=== PATIENT | male | born 1990 | race African-American/Black ===

== ENCOUNTER 2021-06-04 11:39 | Emergency (ER) | payer MEDICAID ==
[~2021-06-04] VITALS: Ht 177.8 cm; Wt 123.0 kg
[2021-06-04 11:46] VITALS: BP 147/95
[2021-06-04] MEDS ORDERED: POLY10DR LEFTEYE (11:59)
== END 2021-06-04 12:13 | disposition home or self-care (01) ==
LOC: ER 11:39
DX: H00.015 Hordeolum externum left lower eyelid (principal); Z88.8 Allergy status to other drugs, medicaments and biological substances; Z98.890 Other specified postprocedural states
CPT/HCPCS: 99283

== ENCOUNTER 2021-06-06 09:03 | Emergency (ER) | payer MEDICAID ==
[~2021-06-06] VITALS: Ht 175.3 cm; Wt 122.0 kg
[~2021-06-06 09:03] MED LIST: POLY10DR LEFTEYE
[2021-06-06 09:07] VITALS: BP 159/99
[2021-06-06] MEDS ORDERED: ERYT1OIN6 LEFTEYE (09:29)
[2021-06-07] MEDS ORDERED: AMOX-424 MT (00:56)
[2021-06-07] MEDS ORDERED: SULF1TAB47 MT (00:56)
== END 2021-06-06 10:01 | disposition home or self-care (01) ==
LOC: ER 09:03
DX: H00.016 Hordeolum externum left eye, unspecified eyelid (principal); I10 Essential (primary) hypertension; Z13.9 Encounter for screening, unspecified; Z88.8 Allergy status to other drugs, medicaments and biological substances
CPT/HCPCS: 99283

== ENCOUNTER 2021-06-06 17:53 | Emergency (ER) | payer MEDICAID ==
[~2021-06-06] VITALS: Ht 177.8 cm; Wt 123.0 kg
[~2021-06-06 17:53] MED LIST changes: +ERYT1OIN6 LEFTEYE
[2021-06-06 21:27] LABS: BASOPHILS % 0.8 % (0.0-2.0); EOSINOPHILS % 0.6 % (0.0-5.0); HEMATOCRIT. 43.8 % (42.0-52.0); HEMOGLOBIN. 14.6 g/dL (14.0-18.0); LYMPHOCYTES % 33.7 % (20.0-50.0); MEAN CORPUSCULAR HEMOGLOBIN 28.3 pg (28.0-32.0); MEAN CORPUSCULAR VOLUME 84.7 fL (80.0-94.0); MEAN PLATELET VOLUME 7.4 fl (7.4-10.4); NEUTROPHILS % 56.9 % (40.0-76.0); PLATELET 211 x1000/uL (130-400); RED BLOOD CELL COUNT 5.17 mill/uL (4.7-6.1); RED CELL DISTRIBUTION WIDTH 13.9 % (11.6-14.6)
[2021-06-06 21:33] LABS: CHLORIDE 102 mEq/L (98-107)
[2021-06-07] MEDS ORDERED: IOHEXOL-300 100 ML BOTTLE ONE (00:24)
[2021-06-07] MEDS ORDERED: SULF1TAB47 MT (00:56)
[2021-06-07] MEDS ORDERED: AMOX-424 MT (00:56)
[2021-06-07 01:30] VITALS: BP 135/82
== END 2021-06-07 02:01 | disposition home or self-care (01) ==
LOC: ER 17:53
DX: H57.89 Other specified disorders of eye and adnexa (principal)
CPT/HCPCS: 36415; 70487; 80053; 85025; 99285; Q9967

== ENCOUNTER 2021-06-09 12:43 | Emergency (ER) | payer MEDICAID ==
[~2021-06-09] VITALS: Ht 177.8 cm; Wt 123.0 kg
[~2021-06-09 12:43] MED LIST changes: +AMOX-424 MT; +SULF1TAB47 MT
[2021-06-09] MEDS ORDERED: SULFAMETHOXAZOLE/TRIMETHOPRIM 800/160MG TABLET PO ONE (15:15)
[2021-06-09] MEDS ORDERED: AMOXICILLIN/POTASSIUM CLAVULANATE 875/125MG TAB PO ONE (15:15)
[2021-06-09] MEDS ORDERED: FLUORESCEIN SODIUM 1MG/STRIP LEFTEYE ONE (16:30)
[2021-06-09] MEDS ORDERED: TETRACAINE 0.5% OPHTH DROPS 4ML LEFTEYE ONE (16:30)
[2021-06-09 18:12] LABS: BASOPHILS % 0.6 % (0.0-2.0); EOSINOPHILS % 1.4 % (0.0-5.0); HEMATOCRIT. 37.2 % (42.0-52.0); HEMOGLOBIN. 12.4 g/dL (14.0-18.0); LYMPHOCYTES % 47.1 % (20.0-50.0); MEAN CORPUSCULAR HEMOGLOBIN 28.6 pg (28.0-32.0); MEAN CORPUSCULAR VOLUME 85.6 fL (80.0-94.0); MEAN PLATELET VOLUME 7.4 fl (7.4-10.4); NEUTROPHILS % 42.9 % (40.0-76.0); PLATELET 221 x1000/uL (130-400); RED BLOOD CELL COUNT 4.35 mill/uL (4.7-6.1)
[2021-06-09 18:18] LABS: CHLORIDE 110 mEq/L (98-107)
[2021-06-09 18:23] LABS: ETHANOL BLOOD < 10 mg/dL
[2021-06-09] MEDS ORDERED: AMOXICILLIN/POTASSIUM CLAVULANATE 875/125MG TAB PO NR (21:30)
[2021-06-09] MEDS ORDERED: TETRACAINE 0.5% OPHTH DROPS 4ML LEFTEYE NR (21:30)
[2021-06-09] MEDS ORDERED: FLUORESCEIN SODIUM 1MG/STRIP LEFTEYE NR (21:30)
[2021-06-10] MEDS ORDERED: AMOXICILLIN/POTASSIUM CLAVULANATE 875/125MG TAB PO SCH
[2021-06-10 01:14] LABS: CLARITY URINE CLEAR (CLEAR); COLOR URINE YELLOW (YELLOW); SPECIFIC GRAVITY URINE 1.025 (1.005-1.030)
[2021-06-10 01:15] LABS: KETONES URINE NEGATIVE (NEGATIVE); LEUKOCYTE ESTERASE URINE TRACE (NEGATIVE); NITRITE URINE NEGATIVE (NEGATIVE); OCCULT BLOOD URINE NEGATIVE (NEGATIVE); PROTEIN URINE NEGATIVE (NEGATIVE)
[2021-06-10 01:40] LABS: *AMPHETAMINES SCREEN URINE NEGATIVE (NEGATIVE); *BARBITURATES SCREEN URINE NEGATIVE (NEGATIVE); *BENZODIAZEPINES SCREEN URINE NEGATIVE (NEGATIVE); *COCAINE SCREEN URINE PRESUMTIVE POSITIVE (NEGATIVE); CANNABINOID URINE SCREEN PRESUMTIVE POSITIVE (NEGATIVE); METHADONE URINE SCREEN NEGATIVE (NEGATIVE); OPIATES URINE SCREEN PRESUMTIVE POSITIVE (NEGATIVE)
[2021-06-10 01:41] LABS: PHENCYCLIDINE URINE SCREEN NEGATIVE (NEGATIVE)
[2021-06-10] MEDS ORDERED: LORAZEPAM 2MG/ML CPJ IM ONE (06:15)
[2021-06-10] MEDS ORDERED: DIPHENHYDRAMINE 50MG/ML VIAL IM ONE (06:15)
[2021-06-10] MEDS: SULFACETAMIDE SODIUM 10% OPHTH DROPS 15ML LEFTEYE SCH ×4 (09:00→22:38)
[2021-06-10] MEDS: AMOXICILLIN/POTASSIUM CLAVULANATE 875/125MG TAB PO SCH ×2 (11:10→17:30)
[2021-06-11 07:45] VITALS: BP 119/66
[2021-06-11] MEDS ORDERED: TRIMO EACHEYE (08:07)
[2021-06-11] MEDS ORDERED: FLUOXETINE HCL 10 MG CAPSULE PO SCH (09:31)
[2021-06-11] MEDS ORDERED: QUETIAPINE FUMARATE 50MG TABLET PO SCH (21:00)
== END 2021-06-11 10:14 | disposition home or self-care (01) ==
LOC: ER 12:43
DX: F33.9 Major depressive disorder, recurrent, unspecified (principal); R45.851 Suicidal ideations; F14.10 Cocaine abuse, uncomplicated; F16.10 Hallucinogen abuse, uncomplicated; F15.10 Other stimulant abuse, uncomplicated; F91.8 Other conduct disorders; L03.213 Periorbital cellulitis; H10.9 Unspecified conjunctivitis; Z91.14 Patient's other noncompliance with medication regimen; Z20.822 Contact with and (suspected) exposure to COVID-19; Z59.00 Homelessness unspecified; Z75.1 Person awaiting admission to adequate facility elsewhere
CPT/HCPCS: 36415; 70450; 70480; 71045; 80053; 80307; 80320; 80329; 85025; 87635; 96372; 99285; J1200; J2060; G0480